=== PATIENT | male | born 1960 | race Caucasian/White ===

== ENCOUNTER 2018-04-04 12:13 | Emergency (ER) | payer OTHER ==
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
[2018-04-04] MEDS ORDERED: NS 1,000 ML IV ONE (12:43)
[2018-04-04] MEDS ORDERED: IOPAMIDOL (ISOVUE-300) 100 ML BTL ONE (12:52)
[2018-04-04 13:45] LABS: PLATELET COUNT 131 10^3/uL (150-400)
[2018-04-04 14:06] VITALS: BP 121/73
== END 2018-04-04 14:04 | disposition home or self-care (01) ==
DX: S30.1XXA Contusion of abdominal wall, initial encounter (principal); E86.9 Volume depletion, unspecified; V89.9XXA Person injured in unspecified vehicle accident, initial encounter; Y92.9 Unspecified place or not applicable; Y93.9 Activity, unspecified; Y99.9 Unspecified external cause status
CPT/HCPCS: 82435-PO; 82565-PO; 82947-PO; 84132-PO; 84295-PO; 84520-PO; 85014-PO; Q9967